=== PATIENT | female | born 1985 | race Caucasian/White ===

== ENCOUNTER → 2016-12-25 | Outpatient (CLI) | payer OTHER ==
[~2016-12-25] MED LIST: MIDAZOLAM 2 MG/2 ML VIAL ONE
== END ==
LOC: FIMAGING 07:36
PROVIDERS: ATTEND Obstetrics & Gynecology
DX: O28.3 Abnormal ultrasonic finding on antenatal screening of mother (principal); O34.592 Maternal care for other abnormalities of gravid uterus, second trimester; N85.8 Other specified noninflammatory disorders of uterus; Z3A.20 20 weeks gestation of pregnancy
CPT/HCPCS: J2250

== ENCOUNTER → 2017-02-19 | Outpatient (CLI) | payer OTHER | LOC: FIMAGING 14:44 | PROVIDERS: ATTEND Obstetrics & Gynecology | DX: Z34.03 Encounter for supervision of normal first pregnancy, third trimester (principal); Z3A.28 28 weeks gestation of pregnancy ==